=== PATIENT | male | born 1980 | race Caucasian/White ===

== ENCOUNTER 2017-06-05 12:34 | Day surgery (SDC) | payer BC ==
[2017-06-02 10:19] VITALS: BMI 28.4
[2017-06-05 13:13] VITALS: TEMP 97.9
[2017-06-05] MEDS ORDERED: LACTATED RINGERS 1,000 ML IV ONE (14:00)
[2017-06-05] MEDS ORDERED: LIDOCAINE 1% INJ 10MG/ML (20 ML MDV) ONE (14:01)
[2017-06-05] MEDS ORDERED: PROPOFOL 10 MG/ML 20 ML VIAL IV ONE (14:01)
[2017-06-05 14:27] VITALS: RESP 16
--- NOTE | 2017-06-05 14:28 | P.PCN ---
Date of Procedure: 06/05/17 Procedure(s) Performed: Procedure: Esophagogastroduodenoscopy and biopsy. Preoperative diagnosis: Symptomatic reflux despite therapy. Postoperative diagnosis: 1. Hiatal hernia with mild corrugation in the esophagus and nonobstructing benign-appearing stricture at the level of the GE junction with localized esophagitis raising the possibility of reflux esophagitis and eosinophilic esophagitis. 2. Mild gastritis and duodenitis. 3. Multiple biopsies obtained. Preparation sedation: Was provided by anesthesia. Brief clinical history: The patient is a 37-year-old male who I have evaluated in the office this month regarding reflux symptoms of around 8-9 months duration not responding completely to medical therapy. This evaluation is to assess for reflux esophagitis, complicated reflux disease or other etiology including eosinophilic esophagitis. Procedure: With the patient on his left lateral decubitus position and after informed consent and adequate sedation, I passed the Olympus-GIF 160 video upper endoscope through the cricopharyngeus down the esophagus. GE junction was around 41 cm from the incisors and there was a sliding hiatal hernia measuring between 1 and 2 cm. There was a benign nonobstructing stricture at the level of the GE junction with localized esophagitis consistent with reflux esophagitis. In addition, there was mild corrugation of the esophagus and linear superficial erosions that could also be on the basis of eosinophilic esophagitis. No other strictures or Carmona's esophagus noted. The endoscope was then passed into the stomach which was insufflated with air and inspected in detail including the retroflex view in the cardia. Finally, the endoscope was passed through the pylorus into the duodenum. Pyloric channel did not show any ulcers. Both the antrum and the duodenum showed some mottling and erythema consent mild gastritis and duodenitis. I obtained multiple biopsies from the duodenum, antrum and esophagus then the endoscope was withdrawn. The patient tolerated the procedure well. Plan: The patient was reassured. Will await biopsy results and make additional recommendations. I will keep you updated on his progress.
[2017-06-05 14:37] VITALS: BP 118/77; PULSE 90
== END 2017-06-05 15:02 | disposition home or self-care (01) ==
LOC: ORWHC2ENDO 12:34
DX: K21.0 Gastro-esophageal reflux disease with esophagitis (principal); K29.50 Unspecified chronic gastritis without bleeding; K29.80 Duodenitis without bleeding; K44.9 Diaphragmatic hernia without obstruction or gangrene; J45.909 Unspecified asthma, uncomplicated; F17.200 Nicotine dependence, unspecified, uncomplicated; E78.5 Hyperlipidemia, unspecified
CPT/HCPCS: 88305; 88342; 43239; J2001; J2704

== ENCOUNTER 2017-06-27 07:06 | Day surgery (SDC) | payer BC ==
[2017-06-19 13:34] VITALS: BMI 28.1
[~2017-06-27 07:06] MED LIST: HEPARIN SODIUM,PORCINE 5,000 UNIT/ML 1 ML VIAL SQ ONE; LACTATED RINGERS 1,000 ML IV SCH; ONDANSETRON 4 MG/2 ML VIAL IVP PRN; ceFAZolin 2 GM in SODIUM CHLORIDE 0.9% 100 ML IVPB ONE
[2017-06-27] MEDS ORDERED: LIDOCAINE 1% 20 ML VIAL (10MG/ML) FOR IV START INTRADERMA ONE (07:32)
[2017-06-27] MEDS ORDERED: DEXAMETHASONE SOD PHOSPHATE 10 MG/ML 1 ML VIAL IV ONE (07:33)
--- NOTE | 2017-06-27 07:51 | P.GSHP ---
History of Present Illness H&P Date: 06/27/17 Chief Complaint: Incarcerated umbilical hernia Is a 37-year-old male referred from Dr. keys. Patient has had complaints of umbilical pain. He was seen in the office found to have evidence of incarcerated umbilical hernia. He presents today for laparoscopic robotic- assisted repair of incarcerated umbilical hernia. Past Medical History Past Medical History: Asthma, GERD/Reflux, Hyperlipidemia Additional Past Medical History / Comment(s): umbilical hernia,hiatal hernia, frequent vomiting and dry heaves, hx of colon poyps, diverticuli, migraines History of Any Multi-Drug Resistant Organisms: None Reported Additional Past Surgical History / Comment(s): EGD,colonoscopy Past Anesthesia/Blood Transfusion Reactions: No Reported Reaction Smoking Status: Current every day smoker - Past Family History Mother Family Medical History: No Reported History Medications and Allergies Home Medications Medication Instructions Recorded Confirmed Type Albuterol Sulfate [Proventil Hfa] 1 - 2 puff INHALATION Q6HR PRN 06/05/17 History Fenofibrate Nanocrystallized 145 mg PO DAILY 06/19/17 06/19/17 History [Fenofibrate] Omeprazole 20 mg PO HS 06/19/17 06/19/17 History Sennosides [Senna] 8.6 mg PO DAILY PRN 06/19/17 06/19/17 History Allergies Allergy/AdvReac Type Severity Reaction Status Date / Time No Known Allergies Allergy Verified 06/27/17 07:11 Surgical - Exam Vital Signs Temp Pulse Resp BP Pulse Ox 97.0 F L 102 H 16 149/98 95 06/27/17 07:15 06/27/17 07:15 06/27/17 07:15 06/27/17 07:15 06/27/17 07:15 - General well developed, no distress - Eyes PERRL - ENT normal pinna - Neck no masses - Respiratory normal expansion - Cardiovascular Rhythm: regular - Abdomen Abdomen: soft, non tender Hernia: umbilical (3 cm incarcerated umbilical hernia) Assessment and Plan Plan: Incarcerated umbilical hernia. We'll perform laparoscopic robotic-assisted repair.
[2017-06-27] MEDS ORDERED: ROCURONIUM BROMIDE 10 MG/ML 10 ML VIAL IV ONE (07:55)
[2017-06-27] MEDS ORDERED: LIDOCAINE 1% INJ 10MG/ML (20 ML MDV) ONE (07:55)
[2017-06-27] MEDS ORDERED: GLYCOPYRROLATE 0.2 MG/ML 2 ML VIAL ONE (07:55)
[2017-06-27] MEDS ORDERED: MIDAZOLAM 2 MG/2 ML VIAL ONE (07:55)
[2017-06-27] MEDS ORDERED: PROPOFOL 10 MG/ML 20 ML VIAL IV ONE (07:55)
[2017-06-27] MEDS ORDERED: fentaNYL (PF) 50 MCG/ML 2 ML AMP ONE (07:55)
[2017-06-27] MEDS ORDERED: HYDROmorphone (PF) 1 MG/ML ONE (07:55)
[2017-06-27] MEDS ORDERED: SUCCINYLCHOLINE CHLORIDE 100 MG/5 ML SYR IV ONE (07:55)
[2017-06-27] MEDS ORDERED: NEOSTIGMINE 1 MG/ML 10 ML VIAL ONE (07:55)
[2017-06-27] MEDS ORDERED: BUPIVACAINE (PF) 0.25% 30 ML VIAL SQ ONE (08:36)
[2017-06-27] MEDS ORDERED: LIDOCAINE 2%-EPI 1:100,000 20 ML VIAL SQ ONE (08:37)
--- NOTE | 2017-06-27 09:04 | P.OP ---
Date of Procedure: 06/27/17 Preoperative Diagnosis: Incarcerated umbilical hernia Postoperative Diagnosis: Incarcerated umbilical hernia Procedure(s) Performed: Laparoscopic robotic-assisted repair of incarcerated umbilical hernia Anesthesia: CHING Surgeon: Delbert Martinez Estimated Blood Loss (ml): 5 Pathology: other (Incarcerated greater omentum) Condition: stable Disposition: PACU Description of Procedure: The patient's placed on the operative table in the supine position. He received general anesthesia. His abdomen was prepped and draped in usual sterile fashion. The skin incision sites were anesthetized 1% local Xylocaine. Using 11 blade the skin was incised. Next using a 5 mm optical trocar under direct visualization the pleural cavity is entered. The abdomen was then insufflated. After adequate insufflation the laparoscope placed back the pleural cavity and a 8 mm robotic trochars placed in the left lower quadrant and a 12 mm robotic trochars placed in the left lateral position original 5 mm trocar was exchanged for another 8 mm robotic trocar. The patient was placed left side up position and docked to the robot. The patient had incarcerated omentum and small bowel stuck at the hernia site. Using hook cautery the incarcerated greater omentum was excised. The fascial defect was then closed using OV lock suture. Next the ventral light ST mesh was secured with 2 OV lock suture. The patient was undocked from the robot. The needles were withdrawn. The the resected greater omentum was put in an Endo Catch and brought out through the 12 mm trocar site. The trochars withdrawn. The 12 trocar site was closed with 0 Ethibond suture. Skin was closed with #3-0 Monocryl suture. Dermabond dressing was applied. Patient was transferred to recovery room stable condition.
[2017-06-27 09:20] VITALS: TEMP 97.5
[2017-06-27] MEDS: HYDROmorphone 0.5 MG/0.5 ML SYRINGE IVP PRN ×2 (09:26→09:31)
[2017-06-27] MEDS ORDERED: HYDROcodone/APAP 7.5-325MG 1 EACH TAB PO ONE (11:10)
[2017-06-27] MEDS ORDERED: LACTATED RINGERS 1,000 ML IV ONE (12:00)
[2017-06-27 14:07] VITALS: BP 131/75; PULSE 79; RESP 16
== END 2017-06-27 14:12 | disposition home or self-care (01) ==
LOC: OR 07:06
PROVIDERS: ATTEND Surgery
DX: K42.0 Umbilical hernia with obstruction, without gangrene (principal); J45.909 Unspecified asthma, uncomplicated; K21.9 Gastro-esophageal reflux disease without esophagitis; K44.9 Diaphragmatic hernia without obstruction or gangrene; E78.5 Hyperlipidemia, unspecified; F17.200 Nicotine dependence, unspecified, uncomplicated; Z86.010 Personal history of colon polyps; Z79.899 Other long term (current) drug therapy
CPT/HCPCS: 49653; S2900; 88305

== ENCOUNTER 2018-07-23 07:43 | Inpatient (IN) | payer BC ==
[2018-07-16 10:33] VITALS: BMI 30.1
[~2018-07-23 07:43] MED LIST changes: +DEXAMETHASONE SOD PHOSPHATE 10 MG/ML 1 ML VIAL IV ONE; +HYDROmorphone 1 MG/ML 1 ML SYRINGE IVP PRN; -LACTATED RINGERS 1,000 ML IV SCH; +LIDOCAINE 1% 20 ML VIAL (10MG/ML) FOR IV START INTRADERMA PRN; +ONDANSETRON 4 MG/2 ML VIAL IVP ONE; -ONDANSETRON 4 MG/2 ML VIAL IVP PRN; +SCOPOLAMINE 1.5MG/72HR PATCH TRANSDERM ONE; -ceFAZolin 2 GM in SODIUM CHLORIDE 0.9% 100 ML IVPB ONE; +ceFAZolin IN SWFI 2 GM/20 ML SYRINGE IVP ONE
[2018-07-23] MEDS: LACTATED RINGERS 1,000 ML IV SCH (08:24)
[2018-07-23] MEDS ORDERED: MIDAZOLAM 2 MG/2 ML VIAL IVP ONE (08:39)
--- NOTE | 2018-07-23 09:12 | P.GSHP ---
History of Present Illness H&P Date: 07/23/18 Chief Complaint: gerd This is a 38-year-old male referred from Silvana Leal NP.The patient has had long -standing problems with reflux esophagitis. The patient underwent recent EGD is found have evidence of esophagitis. Patient has been well informed on the procedure of laparoscopic Anitha fundoplication. The patient is aware the risk of the conversion to the open procedure, risk of injury to the stomach, liver and spleen. The patient is also a risk of recurrent GERD and dysphagia symptoms. The patient understands there is a postoperative diet of full liquids for 2 weeks after surgery. Past Medical History Past Medical History: Asthma, GERD/Reflux, Hyperlipidemia Additional Past Medical History / Comment(s): umbilical hernia,hiatal hernia, frequent vomiting and dry heaves, hx of colon poyps, diverticuli, migraines History of Any Multi-Drug Resistant Organisms: None Reported Past Surgical History: Hernia Repair Additional Past Surgical History / Comment(s): EGD,colonoscopy, umbilical hernia repair, Past Anesthesia/Blood Transfusion Reactions: No Reported Reaction Smoking Status: Current every day smoker - Past Family History Mother Family Medical History: No Reported History Medications and Allergies Home Medications Medication Instructions Recorded Confirmed Type Albuterol Sulfate [Proventil Hfa] 1 - 2 puff INHALATION Q6HR PRN 06/05/17 History Fenofibrate Nanocrystallized 145 mg PO HS 06/19/17 07/23/18 History [Fenofibrate] Fluticasone/Vilanterol [Breo 1 inhalation PO Q24HR 07/16/18 07/23/18 History Ellipta 100-25 Mcg Inhaler] LORazepam [Ativan] 1 mg PO HS 07/16/18 07/23/18 History risperiDONE [RisperDAL] 1 mg PO HS 07/16/18 07/23/18 History Allergies Allergy/AdvReac Type Severity Reaction Status Date / Time No Known Allergies Allergy Verified 07/16/18 10:17 Surgical - Exam Vital Signs Temp Pulse Resp BP Pulse Ox 97.8 F 91 16 125/79 97 07/23/18 08:13 07/23/18 08:13 07/23/18 08:13 07/23/18 08:13 07/23/18 08:13 - General well developed, no distress - Eyes PERRL - ENT normal pinna - Neck no masses - Respiratory normal expansion - Cardiovascular Rhythm: regular - Abdomen Abdomen: soft, non tender Assessment and Plan Assessment: GERD. We'll perform laparoscopic Anitha fundal plication.
[2018-07-23] MEDS ORDERED: fentaNYL (PF) 50 MCG/ML 2 ML AMP ONE (09:43)
[2018-07-23] MEDS ORDERED: KETOROLAC 30 MG/ML 1 ML VIAL ONE (09:43)
[2018-07-23] MEDS ORDERED: PROPOFOL 10 MG/ML 20 ML VIAL IV ONE (09:43)
[2018-07-23] MEDS ORDERED: SUCCINYLCHOLINE CHLORIDE 100 MG/5 ML SYR IV ONE (09:43)
[2018-07-23] MEDS ORDERED: ROCURONIUM BROMIDE 10 MG/ML 10 ML VIAL IV ONE (09:43)
[2018-07-23] MEDS ORDERED: NEOSTIGMINE 1 MG/ML 10 ML VIAL ONE (09:43)
[2018-07-23] MEDS ORDERED: LIDOCAINE 1% INJ 10MG/ML (20 ML MDV) ONE (09:43)
[2018-07-23] MEDS ORDERED: GLYCOPYRROLATE 0.2 MG/ML 2 ML VIAL ONE (09:43)
[2018-07-23] MEDS ORDERED: BUPIVACAIN-EPI 0.25%-1:200,000 30 ML VIAL SQ ONE (10:09)
[2018-07-23] MEDS ORDERED: HYDROmorphone 1 MG/ML 1 ML SYRINGE IVP PRN (10:55)
[2018-07-23] MEDS ORDERED: ONDANSETRON 4 MG/2 ML VIAL IVP PRN (10:55)
[2018-07-23] MEDS ORDERED: ONDANSETRON 4 MG/2 ML VIAL IVP ONE (11:06)
[2018-07-23] MEDS ORDERED: ALBUTEROL NEBULIZED 2.5 MG/3 ML INHALATION PRN (11:19)
[2018-07-23] MEDS: D5-0.45% NACL WITH KCL 20MEQ/L 1,000 ML IV SCH ×3 (13:11→22:00)
[2018-07-23] MEDS: SIMETHICONE 40 MG/0.6 ML DROPS 2,000 MG/30 ML BOTTLE PO SCH ×3 (14:08→22:20)
[2018-07-23] MEDS: METOCLOPRAMIDE 5 MG/ML 2 ML VIAL IVP SCH ×3 (14:09→23:53)
--- NOTE | 2018-07-23 14:12 | P.CONS ---
History of Present Illness - Reason for Consult Asthma - History of Present Illness Patient is a very poor is an 38-year-old male with history of reflux esophagitis is admitted for elective laparoscopic Anitha fundoplication is complaining of some nausea, fullness in the stomach area and caffeine withdrawal headache. Patient denied any fever chills patient denied any significant abdominal pain pain is well controlled. Patient and dysuria cough. Review of Systems REVIEW OF SYSTEMS: CONSTITUTIONAL: No fever, no malaise, no fatigue. HEENT: No recent visual problems or hearing problems. Denied any sore throat. CARDIOVASCULAR: No chest pain, orthopnea, PND, no palpitations, no syncope. PULMONARY: No shortness of breath, no cough, no hemoptysis. GASTROINTESTINAL: No diarrhea, no vomiting, no abdominal pain. Normoactive bowel sounds. NEUROLOGICAL: No headaches, no weakness, no numbness. HEMATOLOGICAL: Denies any bleeding or petechiae. GENITOURINARY: Denies any burning micturition, frequency, or urgency. MUSCULOSKELETAL/RHEUMATOLOGICAL: Denies any joint pain, swelling, or any muscle pain. ENDOCRINE: Denies any polyuria or polydipsia. The rest of the 14-point review of systems is negative. Past Medical History Past Medical History: Asthma, GERD/Reflux, Hyperlipidemia Additional Past Medical History / Comment(s): umbilical hernia,hiatal hernia, frequent vomiting and dry heaves, hx of colon poyps, diverticuli, migraines History of Any Multi-Drug Resistant Organisms: None Reported Past Surgical History: Hernia Repair Additional Past Surgical History / Comment(s): EGD,colonoscopy, umbilical hernia repair, Past Anesthesia/Blood Transfusion Reactions: No Reported Reaction Smoking Status: Current every day smoker - Past Family History Mother Family Medical History: No Reported History Medications and Allergies Home Medications Medication Instructions Recorded Confirmed Type Albuterol Sulfate [Proventil Hfa] 1 - 2 puff INHALATION RT-Q6H PRN 06/05/1702/02 History Fenofibrate Nanocrystallized 145 mg PO HS 06/19/17 07/23/18 History [Fenofibrate] Fluticasone/Vilanterol [Breo 1 puff INHALATION RT-DAILY 07/16/18 07/23/18 History Ellipta 100-25 Mcg Inhaler] LORazepam [Ativan] 1 mg PO HS 07/16/18 07/23/18 History risperiDONE [RisperDAL] 1 mg PO HS 07/16/18 07/23/18 History Allergies Allergy/AdvReac Type Severity Reaction Status Date / Time No Known Allergies Allergy Verified 07/23/18 12:07 Physical Exam Vitals: Vital Signs Temp Pulse Pulse Resp BP BP Pulse Ox 07/23/18 11:40 87 16 130/72 96 07/23/18 11:25 78 16 131/72 96 07/23/18 11:10 59 L 16 150/93 96 07/23/18 10:57 80 16 124/68 96 07/23/18 10:45 16 90 L 07/23/18 10:42 97.8 F 69 18 127/92 94 L 07/23/18 08:13 97.8 F 91 16 125/79 97 Intake and Output 07/22/18 07/23/18 07/23/18 22:59 06:59 14:59 Intake Total 770 Output Total 10 Balance 760 Intake: IV 770 Output: Estimated Blood Loss 10 PHYSICAL EXAMINATION: GENERAL: The patient is alert and oriented x3, not in any acute distress. Well developed, well nourished. HEENT: Pupils are round and equally reacting to light. EOMI. No scleral icterus. No conjunctival pallor. Normocephalic, atraumatic. No pharyngeal erythema. No thyromegaly. CARDIOVASCULAR: S1 and S2 present. No murmurs, rubs, or gallops. PULMONARY: Chest is clear to auscultation, no wheezing or crackles. ABDOMEN: Soft, nontender, nondistended, normoactive bowel sounds. No palpable organomegaly. MUSCULOSKELETAL: No joint swelling or deformity. EXTREMITIES: No cyanosis, clubbing, or pedal edema. NEUROLOGICAL: Gross neurological examination did not reveal any focal deficits. SKIN: No rashes. Assessment and Plan Plan: -Postoperative day 0 status post Anitha fundoplication: Pain management and DVT prophylaxis as per primary service nausea is expected and excessive gassy feeling is also expected for this kind of surgery. -Asthma without any acute exacerbation continue with as needed albuterol nicotine cessation counseling was provided -Hyperlipidemia: Statin will be resumed -Gastroesophageal reflux disease -Depression: Resume his home medications
--- NOTE | 2018-07-23 16:03 | FL ---
Single contrast esophagram EXAMINATION TYPE: FL esophagus cervic/pharynx DATE OF EXAM: 07/23/2018 3:59 PM COMPARISON: NONE CLINICAL HISTORY: Status post Hollis fundoplication The patient ingested contrast without difficulty or delay. Noted are changes of Hollis fundoplicatio n. There is no evidence for leak or obstruction. Small amount of residual contrast within the distal esophagus. IMPRESSION: Post-surgical change of Hollis fundoplication without evidence for leak or obstruction.
[2018-07-23] MEDS: SYMBICORT 80-4.5 MCG INHALER INHALATION SCH (19:42)
[2018-07-23] MEDS: FAMOTIDINE 20 MG/2 ML VIAL IV SCH (20:48)
[2018-07-23] MEDS ORDERED: risperiDONE 1 MG TAB PO SCH (21:00)
[2018-07-23] MEDS ORDERED: FENOFIBRATE 160 MG TAB PO SCH (21:00)
[2018-07-23] MEDS ORDERED: LORazepam 1 MG TAB PO SCH (21:00)
[2018-07-24 00:48] VITALS: RESP 16
[2018-07-24] MEDS: LACTATED RINGERS 1,000 ML IV SCH (01:46)
[2018-07-24] MEDS: METOCLOPRAMIDE 5 MG/ML 2 ML VIAL IVP SCH (05:13)
[2018-07-24] MEDS: D5-0.45% NACL WITH KCL 20MEQ/L 1,000 ML IV SCH (05:16)
[2018-07-24] MEDS: SYMBICORT 80-4.5 MCG INHALER INHALATION SCH (07:52)
[2018-07-24] MEDS ORDERED: ENOXAPARIN 40 MG/0.4 ML SYRINGE SQ SCH (09:00)
[2018-07-24 09:33] VITALS: BP 121/78; PULSE 74; TEMP 97.6
--- NOTE | 2018-07-24 10:15 | P.PN ---
Subjective No overnight events patient is clinically doing well minimal expiratory wheeze on exam Objective - Vital Signs Vital signs: Vital Signs Temp 97.6 F 07/24/18 07:00 Pulse 74 07/24/18 07:00 Resp 16 07/24/18 07:00 BP 121/78 07/24/18 07:00 Pulse Ox 95 07/24/18 07:00 Intake & Output 07/23/18 07/24/18 07/24/18 18:59 06:59 18:59 Intake Total 1470 1979 Output Total 10 Balance 1460 1979 Weight 95.254 kg Intake: IV 770 Intake, IV Titration 250 1500 Amount D5-0.45% NaCl with KCl 250 1500 20Meq/l 1,000 ml @ 125 mls/hr IV .Q8H CHRISTINA Rx#: [id number] Oral 450 480 Output: Estimated Blood Loss 10 Other: Voiding Method Toilet - Exam PHYSICAL EXAMINATION: GENERAL: The patient is alert and oriented x3, not in any acute distress. Well developed, well nourished. HEENT: Pupils are round and equally reacting to light. EOMI. No scleral icterus. No conjunctival pallor. Normocephalic, atraumatic. No pharyngeal erythema. No thyromegaly. CARDIOVASCULAR: S1 and S2 present. No murmurs, rubs, or gallops. PULMONARY: minimal expiratory wheezing ABDOMEN: Soft, nontender, nondistended, normoactive bowel sounds. No palpable organomegaly. MUSCULOSKELETAL: No joint swelling or deformity. EXTREMITIES: No cyanosis, clubbing, or pedal edema. NEUROLOGICAL: Gross neurological examination did not reveal any focal deficits. SKIN: No rashes. Assessment and Plan Plan: -Postoperative day 1 status post Anitha fundoplication: Pain management and DVT prophylaxis as per primary service nausea is expected and excessive gassy feeling is also expected for this kind of surgery. -Asthma with minimal acute exacerbation continue with as needed albuterol, inhaled steroids, nicotine cessation counseling was provided -Hyperlipidemia: Statin can be resumed -Gastroesophageal reflux disease -Depression: Resume his home medications
--- NOTE | 2018-07-24 10:25 | P.DS ---
Providers Date of admission: 07/23/18 07:43 Expected date of discharge: 07/24/18 Attending physician: Delbert Martinez Consults: 07/23/18 10:55 Consult Physician Routine Consulting Provider: Freddy Butts Consult Reason/Comments: med manatg Do you want consulting provider notified?: Yes Primary care physician: Stated None Hospital Course: 38-year-old gentleman with had a long-standing problem with reflux esophagitis underwent a recent EGD which showed evidence of esophagitis. Patient elected to undergo laparoscopic Anitha fundoplication for symptomatic esophageal reflux symptoms. The procedure was done on July 23. There were no postop complications. Patient was tolerating a diet of full liquids no nausea no vomiting and surgical incision sites were dry. Patient was up ambulatory on the unit no difficulty swallowing the upper GI showed no evidence of leak or obstruction Impression discharge diagnosis Long-standing problem with reflux esophagiti recent EGD showed evidence of esophagiti status post July 23 laparoscopic Anitha fundoplication for symptomatic esophagitis Depressive disorder Hyperlipidemia Current every day smoker The above impression and plan of care have been discussed and directed by signing physician. Hetal Rome nurse practitioner acting as scribe for signing physician. Plan - Discharge Summary Discharge Rx Participant: Yes New Discharge Prescriptions: New Acetaminophen Tab [Tylenol Tab] 650 mg PO Q6H #30 tablet Continue Albuterol Sulfate [Proventil Hfa] 1 - 2 puff INHALATION RT-Q6H PRN PRN Reason: Dyspnea Fenofibrate Nanocrystallized [Fenofibrate] 145 mg PO HS risperiDONE [RisperDAL] 1 mg PO HS LORazepam [Ativan] 1 mg PO HS Fluticasone/Vilanterol [Breo Ellipta 100-25 Mcg Inhaler] 1 puff INHALATION RT -DAILY Discharge Medication List Albuterol Sulfate [Proventil Hfa] 1 - 2 puff INHALATION RT-Q6H PRN 06/05/17 [ History] Fenofibrate Nanocrystallized [Fenofibrate] 145 mg PO HS 06/19/17 [History] Fluticasone/Vilanterol [Breo Ellipta 100-25 Mcg Inhaler] 1 puff INHALATION RT- DAILY 07/16/18 [History] LORazepam [Ativan] 1 mg PO HS 07/16/18 [History] risperiDONE [RisperDAL] 1 mg PO HS 10/29/18 [History] Acetaminophen Tab [Tylenol Tab] 650 mg PO Q6H #30 tablet 07/24/18 [Rx] Follow up Appointment(s)/Referral(s): Delbert Martinez MD [STAFF PHYSICIAN] - 1 Week Activity/Diet/Wound Care/Special Instructions: No tub bath for six weeks. Shower daily. No lifting over 10 pounds for the next 2 weeks. Continue diet per dietitian recommendations May use ice packs to surgical site. Do not remove plastic surgical dressings until seen in the follow-up visit Discharge Disposition: HOME SELF-CARE
[2018-07-24] MEDS: SIMETHICONE 40 MG/0.6 ML DROPS 2,000 MG/30 ML BOTTLE PO SCH (10:29)
[2018-07-24] MEDS: FAMOTIDINE 20 MG/2 ML VIAL IV SCH (10:29)
--- NOTE | 2018-09-02 13:02 | P.OP ---
Date of Procedure: 09/02/18 Preoperative Diagnosis: GERD Postoperative Diagnosis: GERD Procedure(s) Performed: Laparoscopic Anitha fundoplication Anesthesia: CHING Surgeon: Delbert Martinez Estimated Blood Loss (ml): 5 Pathology: none sent Condition: stable Disposition: PACU Description of Procedure: HThe patient was placed on the operating table in the supine position. The patient received general anesthesia. And was placed in dorsal lithotomy position. The patient was prepped and draped in the usual sterile fashion. The skin incision sites were anesthetized with 1% local Xylocaine. The skin was incised in the left periumbilical area and then using a blade less 5 mm trocar under direct visualization panel cavity was entered. After adequate insufflation the laparoscope was then placed into the peritoneal cavity. Next a 5 mm trochars placed in the right epigastric position. Another 5 millimeter trocar the right lateral position. Another 5 millimeter trocar in the left lateral position a 5 mm trocar is placed in the left epigastric position. And then the initial 5 mm trocar was exchanged for a 10 mm trocar. The left lateral lobe liver was retracted. The hernia was seen. The crural defect was then dissected using the Harmonic scissors device. A 360 crural dissection was performed the esophagus stomach was reduced back into the peritoneal Cavity. The crural defect was then closed using 2-0 Ethibond suture. Next the fundus of the stomach was mobilized using the [place] scissors device. and then a 58-[place] bougie dilator was placed oropharynx passed into the esophagus and stomach the fundal plication wrap was then performed by grasping the fundus posteriorly and bringing it around the esophagus and stomach fundoplication was then performed using 2-0 Ethibond suture. Care was taken that the fundal location rested over top of the intra-abdominal esophagus. There was no injury seen to the stomach or esophagus. The dilator was then withdrawn. The abdomen was irrigated there is no bleeding seen. The trochars were then withdrawn and then skin incision sites were closed using 3-0 Monocryl suture Steri-Strips are applied. Patient thought procedure well and sent to recovery room in stable condition.
== END 2018-07-24 12:29 | disposition home or self-care (01) | DRG 328 ==
LOC: 2ORMAIN 07:43 → 4SSUR 10:42
PROVIDERS: ADMIT Surgery; ATTEND Surgery
PROC: 0DV44ZZ Restriction of Esophagogastric Junction, Percutaneous Endoscopic Approach (ICD-10-PCS; principal; 2018-07-23 09:05)
DX: K21.0 Gastro-esophageal reflux disease with esophagitis (principal); J45.909 Unspecified asthma, uncomplicated; E78.5 Hyperlipidemia, unspecified; F32.9 Major depressive disorder, single episode, unspecified; G43.909 Migraine, unspecified, not intractable, without status migrainosus; F17.200 Nicotine dependence, unspecified, uncomplicated; Z79.899 Other long term (current) drug therapy; Z79.51 Long term (current) use of inhaled steroids; Z86.010 Personal history of colon polyps; Z71.6 Tobacco abuse counseling; Z98.890 Other specified postprocedural states
CPT/HCPCS: 74210